=== PATIENT | male | born 1985 | race American Indian/Alaskan Native ===

== ENCOUNTER 2016-05-03 15:35 | Emergency (ER) | payer BC ==
[2016-05-03 17:42] VITALS: BP 124/76
== END 2016-05-03 20:05 | disposition left against medical advice (07) ==
LOC: ED 15:35
DX: J02.9 Acute pharyngitis, unspecified (principal); R50.9 Fever, unspecified; Z53.21 Procedure and treatment not carried out due to patient leaving prior to being seen by health care provider

== ENCOUNTER 2018-08-10 19:55 | Emergency (ER) | payer OTHER ==
--- NOTE | 2018-08-10 20:01 | Emergency Department Report ---
Blank Doc - Documentation Documentation: This is a 33-year-old male that presents with left knee pain. This initial assessment/diagnostic orders/clinical plan/treatment(s) is/are subject to change based on patient's health status, clinical progression and re- assessment by fellow clinical providers in the ED. Further treatment and workup at subsequent clinical providers discretion. Patient/guardians urged not to elope from the ED as their condition may be serious if not clinically assessed and managed. Initial orders include: 1- Patient sent to [facility] for further evaluation and treatment 2- xray
[2018-08-10 20:02] VITALS: BP 121/67
--- NOTE | 2018-08-10 21:20 | XRay Report ---
PROCEDURE: XR KNEE 3V LT TECHNIQUE: Left knee 3 views HISTORY: knee pain COMPARISONS: FINDINGS: No fracture identified. No dislocation seen. No evidence for joint effusion. IMPRESSION: Negative knee series. This document is electronically signed by Judson Mccain MD., August 10 2018 09:18:50 PM ET
--- NOTE | 2018-08-11 00:29 | Emergency Department Report ---
ED Lower Extremity HPI - General Chief Complaint: Extremity Injury, Lower Stated Complaint: LEFT KNEE PAIN Time Seen by Provider: 08/10/18 20:00 Source: patient Mode of arrival: Ambulatory Limitations: No Limitations - History of Present Illness Initial Comments: This is a 33-year-old -[place] male who presents with left knee pain for one week. Patient states he was wearing just stepped backwards incorrectly and been in pain ever since. States initially there was some mild swelling to anterior left knee which is now resolved. Patient states he is applying ice to area which improves. He reports pain is worse weightbearing. He is currently using a knee brace. He denies numbness or tingling, paresthesias, weakness, or bruising. MD Complaint: knee injury (left) Onset/Timin -: week(s) Injury: Knee: Left Type of Injury: unknown Place: street/outdoors Severity: moderate Severity scale (0 -10): 4 Improves With: NSAID, cold therapy Worsens With: weight bearing Context: walking Associated Symptoms: swelling, able to partially bear weight, ambulatory. denies: snap/pop sensation, numbness, tingling, unable to bear weight Treatments Prior to Arrival: cold therapy - Related Data Previous Rx's Medication Instructions Recorded Last Taken Type Menthol/Camphor [[place] 18 gm TP Q4H PRN #1 oint...g. 08/11/18 Unknown Rx Ointment] Naproxen [Naprosyn] 500 mg PO TID PRN #20 tablet 08/11/18 Unknown Rx Allergies Allergy/AdvReac Type Severity Reaction Status Date / Time No Known Allergies Allergy Unverified 02/04/15 02:34 ED Review of Systems ROS: Stated complaint: LEFT KNEE PAIN Other details as noted in HPI Constitutional: no symptoms reported Respiratory: denies: cough, shortness of breath, wheezing Cardiovascular: denies: chest pain, palpitations Gastrointestinal: denies: abdominal pain, nausea, diarrhea Musculoskeletal: arthralgia (left knee pain). denies: back pain, joint swelling Skin: denies: rash, lesions Neurological: denies: headache, weakness, paresthesias Psychiatric: denies: anxiety, depression ED Past Medical Hx - Past Medical History Previous Medical History?: No - Surgical History Past Surgical History?: No - Social History Smoking Status: Never Smoker Substance Use Type: None - Medications Home Medications: Home Medications Medication Instructions Recorded Confirmed Last Taken Type Menthol/Camphor [[place] 18 gm TP Q4H PRN #1 oint...g. 08/11/18 Unknown Rx Ointment] Naproxen [Naprosyn] 500 mg PO TID PRN #20 tablet 08/11/18 Unknown Rx ED Physical Exam - General Limitations: No Limitations General appearance: alert, in no apparent distress, obese - Respiratory Respiratory exam: Present: normal lung sounds bilaterally. Absent: respiratory distress - Cardiovascular Cardiovascular Exam: Present: regular rate, normal rhythm. Absent: systolic murmur, diastolic murmur, rubs, gallop - GI/Abdominal GI/Abdominal exam: Present: soft, normal bowel sounds - Expanded Lower Extremity Exam Left Hip exam: Present: normal inspection, full ROM Upper Leg exam: Present: normal inspection, full ROM Knee exam: Present: full ROM (pain with range of motion), full knee extension. Absent: tenderness, swelling, abrasion, laceration, ecchymosis, deformity, crepidus, dislocation, erythema, effusion, pain w/ pronation/supination, posterior draw sign, pain/laxity with valgus, pain/laxity with varus Lower Leg exam: Present: normal inspection, full ROM Ankle exam: Present: normal inspection, full ROM Foot/Toe exam: Present: normal inspection, full ROM Neuro vascular tendon exam: Present: no vascular compromise Gait: Positive: observed and normal - Neurological Exam Neurological exam: Present: alert, oriented X3, normal gait - Psychiatric Psychiatric exam: Present: normal affect, normal mood - Skin Skin exam: Present: warm, dry, intact, normal color. Absent: rash ED Course Vital Signs 08/10/18 20:00 Temperature 98 F Pulse Rate 72 Respiratory 18 Rate Blood Pressure 121/67 O2 Sat by Pulse 100 Oximetry ED Lower Extremity MDM - Radiology Data Radiology results: report reviewed PROCEDURE: XR KNEE 3V LT TECHNIQUE: Left knee 3 views HISTORY: knee pain COMPARISONS: FINDINGS: No fracture identified. No dislocation seen. No evidence for joint effusion. IMPRESSION: Negative knee series. - Medical Decision Making Patient was examined by me. Vitals are normal and patient is in no acute distress. Obtained a x-ray of left knee. X-rays dictated by radiologist as no acute findings. Patient informed of results. Muscle strain. Start tiger balm and naproxen for pain. Plan discussed with patient to discharge home and treat outpatient. He agrees with ER plan. Patient discharged home in stable condition. Follow up with PCP in 2-3 days. Critical care attestation.: If time is entered above; I have spent that time in minutes in the direct care of this critically ill patient, excluding procedure time. ED Disposition Clinical Impression: Left anterior knee pain Muscle strain of left knee Qualifiers: Encounter type: initial encounter Qualified Code(s): S86.912A - Strain of unspecified muscle(s) and tendon(s) at lower leg level, left leg, initial encounter Disposition: TO HOME OR SELFCARE Is pt being admited?: No Does the pt Need Aspirin: No Condition: Stable Instructions: Muscle Strain (ED), Knee Pain (ED), Arthralgia (ED) Additional Instructions: Rest Use ice or heat on affected area for 20 minutes and off for 2 hours. Take pain medication as needed for pain. Follow up with Primary Care Provider in 2-3 days. Prescriptions: Naproxen [Naprosyn] 500 mg PO TID PRN #20 tablet PRN Reason: Pain , Severe (7-10) Menthol/Camphor [[place] Ointment] 18 gm TP Q4H PRN #1 oint...g. PRN Reason: Pain , Severe (7-10) Referrals: CHINTAN FERNANDEZ MD [Primary Care Provider] - 3-5 Days [facility] [Outside] - 3-5 Days [facility] [Outside] - 3-5 Days Forms: Accompanied Note, Work/School Release Form(ED) Time of Disposition: 00:28
== END 2018-08-11 00:33 | disposition home or self-care (01) ==
LOC: ED 19:55
DX: S86.912A Strain of unspecified muscle(s) and tendon(s) at lower leg level, left leg, initial encounter (principal); X58.XXXA Exposure to other specified factors, initial encounter; Y93.89 Activity, other specified; Y92.89 Other specified places as the place of occurrence of the external cause; Y99.8 Other external cause status